=== PATIENT | male | born 1965 | race Caucasian/White ===

== ENCOUNTER → 2018-05-27 | Outpatient (CLI) | payer BC ==
[~2018-05-27] MED LIST: NO HOME MEDICATIONS
== END ==
LOC: COL.RAD 08:23
DX: R10.11 Right upper quadrant pain (principal)
CPT/HCPCS: A9537

== ENCOUNTER 2019-04-23 13:24 | Inpatient (IN) | payer BC ==
[~2019-04-23] VITALS: Ht 180.3 cm; Wt 90.0 kg
[2019-04-23] MEDS ORDERED: FLOMAX 0.40.4 MG/CAP PO (14:27)
[2019-04-23 14:34] LABS: HEMATOCRIT 38.1 % (42.0-52.0); MEAN CELL VOLUME 77 fl (80.0-100.0); MEAN CORPUSCULAR HEMOGLOBIN 24 pg (27.0-31.0); MEAN CORPUSCULAR HGB CONC 32 g/dl (33.0-37.0); MEAN PLATELET VOLUME 11.7 fl (7.4-10.4); PLATELET COUNT 94 K/mm3 (130-400); RED BLOOD COUNT 4.98 M/mm3 (4.20-5.60); REDCELL DISTRIBUTION WIDTH-CV 13.4 % (11.5-14.5)
[2019-04-23 14:47] LABS: ALBUMIN 3.3 gm/dL (3.5-5.0); BILIRUBIN,TOTAL 2.3 mg/dL (0.0-1.0); CALCIUM 7.7 mg/dL (8.4-10.2); CREATININE, serum 1.38 (0.66-1.25); POTASSIUM 3.1 mmol/L (3.4-5.0); TOTAL PROTEIN 6.4 gm/dL (6.4-8.2)
[2019-04-23 15:08] LABS: TROPONIN-I 1.41 ng/mL (0.000-0.035)
[2019-04-23 15:16] LABS: COLLECTION METHOD CLEAN CATCH
[2019-04-23 15:16] LABS: BAND 15 % (0-10); LYMPHOCYTE 5 % (20.0-51.0); NEUTROPHILS 79 % (42.0-75.2)
[2019-04-23 15:17] LABS: PLATELET ESTIMATE DECREASED (NORMAL)
[2019-04-23 15:30] LABS: C-REACTIVE PROTEIN 37.8 mg/dL (0.0-0.9)
[2019-04-23 15:30] LABS: GRANULAR CAST >12 /lpf; HYALINE CAST >12 /lpf; MUCOUS Present /lpf; PH 5 (5-8); SQUAMOUS EPITHELIAL 0-2 /hpf; URINE APPEARANCE Cloudy; URINE BACTERIA None Seen /hpf; URINE BILIRUBIN Positive (NEGATIVE); URINE BLOOD 1+ (NEGATIVE); URINE COLOR Amber; URINE GLUCOSE 1+ (NEGATIVE); URINE KETONE Trace (NEGATIVE); URINE LEUKOCYTE ESTERASE Negative (NEGATIVE); URINE NITRATE Negative (NEGATIVE); URINE PROTEIN(semi-quant) 2+ (NEGATIVE); URINE UROBILINOGEN >=4.0 mg/dL (NEGATIVE)
[2019-04-23 22:11] VITALS: BP 76/51; PULSE 105; TEMP 98.8
[2019-04-23 23:09] VITALS: BP 78/54; PULSE 102; TEMP 99.1
[2019-04-23 23:40] VITALS: BP 75/51; PULSE 104
[2019-04-23 23:50] VITALS: BP 70/38; PULSE 103
[2019-04-24] VITALS (674 sets, daily range): BP systolic 68–151; BP diastolic 43–92; PULSE 60–108; TEMP 97.6–98.2; O2SAT 65–100
[2019-04-24 00:22] LABS: TROPONIN-I 6 HR POST INITIAL 2.08 ng/mL (0.000-0.034)
--- NOTE | 2019-04-24 00:38 | NUR ---
Pt BP still not coming up. Last BP 86/56 HR 103. Second liter of NS hung at 999. First liter of NS on the floor infused prior with no problems. RT in room to do EKG.
--- NOTE | 2019-04-24 00:58 | NUR ---
REPORT RECIVED FROM VALERIA STEELE.
--- NOTE | 2019-04-24 01:10 | NUR ---
Tawny in to assess pt. BP still low. Orders to transfer pt to ICU 6. Report called to ICU. Pt transfered per bed.
[2019-04-24 01:55] LABS: HEMOGLOBIN 10.7 g/dl (13.5-18.0); MEAN CELL VOLUME 77 fl (80.0-100.0); MEAN CORPUSCULAR HEMOGLOBIN 25 pg (27.0-31.0); MEAN CORPUSCULAR HGB CONC 32 g/dl (33.0-37.0); MEAN PLATELET VOLUME 11.8 fl (7.4-10.4); PLATELET COUNT 69 K/mm3 (130-400); RED BLOOD COUNT 4.36 M/mm3 (4.20-5.60); REDCELL DISTRIBUTION WIDTH-CV 13.7 % (11.5-14.5)
[2019-04-24 01:59] LABS: HEMATOCRIT 33.6 % (42.0-52.0)
[2019-04-24 02:07] LABS: ALBUMIN 2.8 gm/dL (3.5-5.0); CREATININE, serum 1.76 (0.66-1.25); MAGNESIUM 1.6 mg/dL (1.6-2.3); POTASSIUM 3.3 mmol/L (3.4-5.0); TOTAL PROTEIN 5.6 gm/dL (6.4-8.2)
[2019-04-24 02:18] LABS: TROPONIN-I 1.63 ng/mL (0.000-0.035)
[2019-04-24 02:24] LABS: BAND 51 % (0-10); HYPOCHROMIA 1+; LYMPHOCYTE 2 % (20.0-51.0); METAMYELOCYTE 2 % (0-0); MICROCYTOSIS 1+; NEUTROPHILS 44 % (42.0-75.2); PLATELET ESTIMATE DECREASED (NORMAL)
[2019-04-24 04:01] LABS: PROTHROMBIN TIME 11.7 SECONDS (9.7-12.8)
[2019-04-24 04:08] LABS: MONOSCREEN NEGATIVE
--- NOTE | 2019-04-24 05:37 | NUR ---
1250 - RECEIVED REPORT FROM VALERIA STEELE. 0110 - PT ARRIVED IN UNIT VIA BED, ESCORTED BY 2 RNs. PT ABLE TO SCOOT HIMSELF INDEPENDENTLY TO ICU BED. PT'S BP AT HIGH 80'S TO LOW 90'S AND SUBSEQUENTLY STARTED ON LEVOPHED PER ORDER. SEE E-MAR. 0140 - BAKER INSERTED PER ORDER. 0200 - LEVOPHED STARTED PER ORDER. 0210 - THIS RN CALLED PARTY PLAN SALES HOST/HOSTESS REGARDING PT HAVING ONLY PERIPHERAL IV ACESS FOR LEVOPHED. PARTY PLAN SALES HOST/HOSTESS AWARE AND ORDER TO MONITOR PT FOR NOW. 0255 - TIMEOUT DONE FOR CENTRAL LINE PLACEMENT WITH DR. OVALLE. 0308 - CENTRAL LINE INSERTED AT RIGHT JUGULAR VEIN. X-RAY CALLED IN FOR CHECK PLACEMENT. 0315 - VERBAL OKAY TO USE CENTRAL LINE PER DR. OVALLE. 0410 - HARESH PUMP STATION OPERATOR IN ROOM WITH PATIENT AND AT BEDSIDE FOR UPDATES.
[2019-04-24 05:40] LABS: HEMOGLOBIN 10.6 g/dl (13.5-18.0); MEAN CELL VOLUME 78 fl (80.0-100.0); MEAN CORPUSCULAR HEMOGLOBIN 25 pg (27.0-31.0); MEAN CORPUSCULAR HGB CONC 32 g/dl (33.0-37.0); MEAN PLATELET VOLUME 12.6 fl (7.4-10.4); PLATELET COUNT 76 K/mm3 (130-400); RED BLOOD COUNT 4.31 M/mm3 (4.20-5.60); REDCELL DISTRIBUTION WIDTH-CV 13.7 % (11.5-14.5)
[2019-04-24 05:41] LABS: HEMATOCRIT 33.6 % (42.0-52.0)
[2019-04-24 05:55] LABS: ALBUMIN 3.2 gm/dL (3.5-5.0); BILIRUBIN,TOTAL 4.3 mg/dL (0.0-1.0); CALCIUM 7.1 mg/dL (8.4-10.2); CREATININE, serum 1.54 (0.66-1.25); POTASSIUM 3.6 mmol/L (3.4-5.0)
[2019-04-24 06:14] LABS: BAND 42 % (0-10); LYMPHOCYTE 1 % (20.0-51.0); METAMYELOCYTE 1 % (0-0); NEUTROPHILS 49 % (42.0-75.2); PLATELET ESTIMATE DECREASED (NORMAL)
[2019-04-24 06:15] LABS: HYPOCHROMIA 1+; MICROCYTOSIS 1+
--- NOTE | 2019-04-24 08:00 | NUR ---
PATIENT ASSESSED, VITALS TAKEN, LINES RETRACED, LINEN CHANGED, QUESTIONS AND CONCERNS ADDRESSED. PATIENT PLACED ON TOILET, DENIES DIZZINESS, PALPITATIONS, OR UNSTEADINESS. CALL LIGHT WITHIN REACH. WILL CONTINUE TO MONITOR.
[2019-04-24 08:38] LABS: BILIRUBIN,DIRECT 3.3 mg/dL (0.0-0.4)
--- NOTE | 2019-04-24 12:57 | NUR ---
PATIENT REASSESSED, LINES RETRACED, QUESTIONS AND CONCERNS ADDRESSED. WILL CONTINUE TO MONITOR.
[2019-04-24 17:41] LABS: CALCIUM 7.7 mg/dL (8.4-10.2); CREATININE, serum 1.17 (0.66-1.25); POTASSIUM 3.6 mmol/L (3.4-5.0)
--- NOTE | 2019-04-24 17:49 | NUR ---
PATIENT COMPLAINING OF SLIGHT SHORTNESS OF BREATH; LUNG SOUNDS ON RIGHT SIDE NOTED TO HAVE LIGHT EXP. WHEEZING, ALL LOBES DIMINISHED, SPO2 AT 96% RA. PATIENT HAS A SLIGHT COUGH AND WHEN ASKED ABOUT WHETHER HE WAS HAVING SPUTUM COME UP, HE STATED THAT IT WAS "NOT MUCH" AND GREEN IN COLOR. PATIENT STATES THAT HE HAS NOT BEEN ABLE TO VOID MUCH TODAY AND DOES NOT HAVE A STRONG APPETITE. FOOD AND FLUIDS OFFERED BY BOTH NURSE AND FAMILY, PATIENT CONTINUALLY STATES THAT HE WILL "GET AROUND TO IT." UPON SITTING UP AT SIDE OF BED, PATIENT STATED THAT HE "SEES TREES WHENEVER I CLOSE MY EYES." WHEN ASKED ABOUT DIZZINESS, HEADACHE, SENSITIVITY TO LIGHT AND SOUND, PATIENT DENIES ALL OF THESE THINGS.
--- NOTE | 2019-04-24 19:33 | NUR ---
REPORT GIVEN TO VALERIA GUAMAN.
[2019-04-25] VITALS (273 sets, daily range): BP systolic 104–154; BP diastolic 65–79; PULSE 54–72; TEMP 97.2–98.4; O2SAT 58–100
[2019-04-25 04:37] LABS: GRAN # 5.1 (1.4-6.5); GRAN % 83.1 % (42.2-75.2); HEMATOCRIT 32.7 % (42.0-52.0); HEMOGLOBIN 10.4 g/dl (13.5-18.0); LYMPH # 0.6 (1.2-3.4); MEAN CELL VOLUME 76 fl (80.0-100.0); MEAN CORPUSCULAR HEMOGLOBIN 24 pg (27.0-31.0); MEAN CORPUSCULAR HGB CONC 32 g/dl (33.0-37.0); MEAN PLATELET VOLUME 12.5 fl (7.4-10.4); MONO # 0.4 (0.1-0.6); MONO % 7.2 % (1.7-9.3); PLATELET COUNT 99 K/mm3 (130-400); RED BLOOD COUNT 4.29 M/mm3 (4.20-5.60); REDCELL DISTRIBUTION WIDTH-CV 14.3 % (11.5-14.5)
[2019-04-25 04:50] LABS: CALCIUM 7.9 mg/dL (8.4-10.2); CREATININE, serum 1.16 (0.66-1.25); MAGNESIUM 2.6 mg/dL (1.6-2.3); PHOSPHOROUS 1.9 mg/dL (2.5-4.5); POTASSIUM 3.5 mmol/L (3.4-5.0)
--- NOTE | 2019-04-25 08:00 | NUR ---
UPON ENTERING ROOM, PATIENT WAS SITTING AT THE SIDE OF THE BED AND NOTED TO BE AGITATED. SHOUTING, STATING THAT HE WANTS TO LEAVE THE UNIT TO SHOWER, CANNOT SLEEP, IS "SICK OF USING THESE TOILETS WITH EVERYONE WALKING BY", AND IS READY TO GO. PATIENT REQUESTED TO GO UPSTAIRS SO HE COULD SHOWER. INFORMED PATIENT THAT SINCE HE IS ICU STATUS, HE CANNOT LEAVE THE UNIT TO SHOWER ON A DIFFERENT FLOOR. I ATTEMPTED TO ADDRESS THE CONCERNS OF WANTING TO SHOWER BY OFFERING WARM BATH WIPES AND A SHAMPOO CAP--PATIENT ADAMENTLY REFUSED, OFFERED TO CLOSE THE BLINDS AND ROOM DOOR WHEN USING THE TOILET--PATIENT STATED THAT HE WANTED A REAL TOILET. I EXPLAINED TO PATIENT THAT IT IS UP TO THE HOSPITALIST WHETHER HE CAN BE SENT TO THE MEDICAL FLOOR IS IN [place] TO SHOWER THERE UPON TRANSFER. PROVIDER NOTIFIED OF SITUATION PRIOR TO ROUNDING AT BEDSIDE.
--- NOTE | 2019-04-25 10:34 | NUR ---
SW met with the patient to discuss a discharge plan. The pt lives in [place] with his , Marissa. The pt does not use DME and reports independence with ADLs. The pt's PCP is Dr. Hagen and pt receives medications from [facility] with no difficulties. The pt does not have advanced directives in the EMR and was not interested in obtaining a DPOA-HC form. The pt plans to return home upon discharge. There are no additional needs at this time.
--- NOTE | 2019-04-25 12:20 | NUR ---
PATIENT TAKEN FROM ICU UNIT TO MEDICAL UNIT VIA WHEELCHAIR, ESCORTED BY MYSELF, ACCOMPANIED BY VARIOUS PATIENT FAMILY MEMBERS. REPORT GIVEN TO VALERIA URIBE AT 1115.
--- NOTE | 2019-04-25 23:15 | NUR ---
Tawny nottified of pt's HR dropping down to 43 and gradually going up to low to mid 50's. Pt checked frequently with no s/s. States he is trying to get some sleep. Tawny ok with lowering tele perimeter to 45. ICU tele notified.
[2019-04-26] VITALS (398 sets, daily range): BP systolic 135–170; BP diastolic 72–106; PULSE 50–75; TEMP 97.2–98.7; O2SAT 87–99
--- NOTE | 2019-04-26 02:11 | NUR ---
Pt's HR still drops into the 40's. Denies any s/s. Antibiotics given thru Right IJ. Flushes without any difficulty. Will continue to monitor.
--- NOTE | 2019-04-26 05:35 | NUR ---
Pt c/o his mouth being so dry since he can not have anything to eat or drink. Swabs given so he can clean his mouth. Refuses chap stick. States he might not be able to wait till 12:30 for his heart cath. Offered cool cloths to put on forehead and pt refuses. HR at this time in the 50's and then drops for a brief moment to the low 40's. No s/s of low HR. Call light within reach.
[2019-04-26 06:11] LABS: HEMOGLOBIN 10.8 g/dl (13.5-18.0); MEAN CELL VOLUME 75 fl (80.0-100.0); MEAN CORPUSCULAR HEMOGLOBIN 24 pg (27.0-31.0); MEAN CORPUSCULAR HGB CONC 33 g/dl (33.0-37.0); MEAN PLATELET VOLUME 13.4 fl (7.4-10.4); PLATELET COUNT 135 K/mm3 (130-400); RED BLOOD COUNT 4.43 M/mm3 (4.20-5.60); REDCELL DISTRIBUTION WIDTH-CV 14.2 % (11.5-14.5)
[2019-04-26 06:12] LABS: HEMATOCRIT 33.2 % (42.0-52.0)
[2019-04-26 06:20] LABS: BILIRUBIN UNCONJUGATED 1.2 mg/dL (0.0-1.1); BILIRUBIN,TOTAL 2.2 mg/dL (0.0-1.0); CALCIUM 8.1 mg/dL (8.4-10.2); CREATININE, serum 1.12 (0.66-1.25); TOTAL PROTEIN 6.2 gm/dL (6.4-8.2)
[2019-04-26 06:27] LABS: POTASSIUM 2.9 mmol/L (3.4-5.0)
--- NOTE | 2019-04-26 06:45 | NUR ---
Lab called with critical Potassium level of 2.9. Dr Salcido notified of Potassium level. Orders received oral and IV potassium along with some pudding to take.
--- NOTE | 2019-04-26 08:09 | NUR ---
Called Pharmacy to verify the length of time to run 40meq IV potassium in a central line. Report given to VALERIA Harding.
[2019-04-26 09:41] LABS: BAND 4 % (0-10); LYMPHOCYTE 20 % (20.0-51.0); NEUTROPHILS 73 % (42.0-75.2); PLATELET ESTIMATE NORMAL (NORMAL)
--- NOTE | 2019-04-26 09:46 | NUR ---
Reviewing pt chart prior to heart cath. No current coag labs available. Pt plt count [address] Salcido notified by this RN. Order for stat PT/INR. Pt also to receive Aspirin 81mg PO prior to procedure. Orders read back and verified.
--- NOTE | 2019-04-26 10:00 | NUR ---
K+ lab 2.9 on morning labs. IV and PO replacement orders active. IV K+ replacement being started at 0930 by primary RN while this RN in room examining pt. Pt next on cardiac cath lab technologist schedule, Dr Salcido notified of this.
[2019-04-26 10:37] LABS: INR 1.1 (0.8-3.0)
--- NOTE | 2019-04-26 10:45 | NUR ---
PT off floor for scheduled heart cath; Second dose of IV Potassium pulled and hung for dosing prior to exit from floor. CDA
--- NOTE | 2019-04-26 11:20 | NUR ---
SEE MERGE DOCUMENTATION FOR MEDICATION ADMINISTRATION TIMES AND INTRA/POST PROCEDURE SEDATION ASSESSMENTS. SEE NOTES REGARDING K+; MD AWARE OF MORNING LEVEL, IV REPLACEMENT CURRENTLY INFUSING, OK WITH PROCEEDING WITH CASE. PT PREVIOUSLY RECEIVING PO K+ REPLACEMENT TODAY WELL. RATE OF K+ REPLACEMENT INCREASED TO 20 MEQ/HR THROUGH RIGHT IJ CENTRAL LINE PER VORB FROM DR TODD.
--- NOTE | 2019-04-26 11:46 | NUR ---
Completed assessment and medication administration; PT tolerated all cares well; PT reported acute anxiety during morning shift change with pending cardiac cath procedure; No further acute concerns assessed or reported at time of assessment; PT able to AMB well with voiding; RIJ triple lumen in place; No further acute assessed or reported needs or concerns; PT critical labs reported to night; Pending new orders at time of shift change; New order for oral and IV Potassium replacement placed; Oral Potassium given with orange juice; IV Potassium not given at same time as PT imaging in room prior to cardiac cath and unavoidable acute care changes in other patient delaying availablity in PT room. CDA
--- NOTE | 2019-04-26 14:05 | NUR ---
Patient arrives to ICU 4 via bed from starch factory laborer with RN x2. A/Ox4 but sleepy. Arouses to name and answers appropriately. TR band on to right radial cath site, site CDI. Continues with chest pain from CL, 11/08 and improving. Resp sl labored at rest, was given Lasix in CL. Lungs diminished but clear with upper airway wheezing. Call light at side. Has many complaints, emotional support given
--- NOTE | 2019-04-26 18:50 | NUR ---
1814 Patient up to sit in recliner for supper. Transfers with 1:1 assist, tolerates fair. C/o dizziness but resolves after transfer. 1834 Request help with urinal, "pissed all down my leg". Offered to take shorts off, "It's fine." Stands to return to bed and asks son for new pair of shorts, son leaves to get pain. This RN told patient's other son to stay with patient and ensure he stays in chair until RN comes back. States understanding. 1849 Returned to patient room and patient has transfered himself to bed. Talked with patient and family about that we need to follow the rules and allow nursing staff to help or we could have problems, jamel following procedure. states understanding, patient states "whatever you say, ok" Request to get up to toilet, up and transfers for BM. RN helps return to bed, refuses blood pressure at this time "Just leave me be". Asks repeatedly to go to medical floor, talked with him that he will go upstairs tomorrow if all goes well tonight.
--- NOTE | 2019-04-26 20:00 | NUR ---
Patient is awake and lying in bed. at the bedside. Patient is alert and oriented. No complaints of pain, just states he has some soreness, but would not rate the pain. No complaints of SOB. Assessment complete. Patient's lung sounds are clear in all [place]. HR and rhythm regular with normal S1 and S2 heard. Bowel sounds active. Patient's cath site is clean and dry, TR band in place. No evidence of bleeding or hematoma. Patient has no further needs at this time. Will continue to monitor, call light within reach.
--- NOTE | 2019-04-26 20:10 | NUR ---
Bedside report received from VALERIA Beckett
--- NOTE | 2019-04-26 23:37 | NUR ---
Patient was assisted up to the recliner per his request. At this time patient was found to be out of the recliner and trying to get himself back in bed. Patient was tangled in all the cords and IV lines. Assisted patient with lines and getting in bed. Reinforced with patient that he needs to call prior to getting up, he mumbles but does not confirm understanding. Will continue to monitor.
[2019-04-27] VITALS (832 sets, daily range): BP systolic 136–163; BP diastolic 76–95; PULSE 41–79; TEMP 97.3–98.4; O2SAT 85–100
--- NOTE | 2019-04-27 | NUR ---
Patient asleep upon extrance into the room. Awakens to noise in the room. Patient has been restless all night. He is alert and oriented. Assessment complete, no changes from previous exam. Patient is bradycardic now, but still sinus rhythm with occasional PVCs. Patient has no further needs at this time. Will continue to monitor. Call light within reach.
--- NOTE | 2019-04-27 04:00 | NUR ---
Patient sleeps between disturbances. Awakens to noise in the room. no complaints of pain or SOB. No signs of distress. Patient is still restless at times. Vitals have remained stable, though HR did reach a low of 41. Patient has no further needs at this time. Will continue to monitor. Call light within reach.
--- NOTE | 2019-04-27 05:30 | NUR ---
Integrilin drip stopped at this time.
[2019-04-27 07:19] LABS: ALBUMIN 3.1 gm/dL (3.5-5.0); BILIRUBIN,TOTAL 2.7 mg/dL (0.0-1.0); CALCIUM 7.9 mg/dL (8.4-10.2); CREATININE, serum 0.86 (0.66-1.25); HEMOGLOBIN 11.9 g/dl (13.5-18.0); MEAN CELL VOLUME 75 fl (80.0-100.0); MEAN CORPUSCULAR HEMOGLOBIN 24 pg (27.0-31.0); MEAN CORPUSCULAR HGB CONC 32 g/dl (33.0-37.0); MEAN PLATELET VOLUME 13.3 fl (7.4-10.4); PLATELET COUNT 159 K/mm3 (130-400); RED BLOOD COUNT 4.93 M/mm3 (4.20-5.60); REDCELL DISTRIBUTION WIDTH-CV 13.9 % (11.5-14.5); TOTAL PROTEIN 6.1 gm/dL (6.4-8.2)
[2019-04-27 07:22] LABS: POTASSIUM 2.9 mmol/L (3.4-5.0)
--- NOTE | 2019-04-27 07:32 | NUR ---
Bedside report given to VALERIA Pink and VALERIA Chaney.
[2019-04-27 07:36] LABS: HEMATOCRIT 36.9 % (42.0-52.0)
--- NOTE | 2019-04-27 07:45 | NUR ---
PATIENT ASSESSED, QUESTIONS AND CONCERNS FROM BOTH PATIENT AND FAMILY ADDRESSED. PATIENT DENIES ANY PAIN. WILL CONTINUE TO MONITOR.
[2019-04-27 08:12] LABS: EOSINOPHIL 2 % (0-4); LYMPHOCYTE 10 % (20.0-51.0); NEUTROPHILS 79 % (42.0-75.2); PLATELET ESTIMATE NORMAL (NORMAL)
[2019-04-27 08:13] LABS: HYPOCHROMIA 1+; MICROCYTOSIS 1+
--- NOTE | 2019-04-27 10:05 | NUR ---
SW attended clinical rounds. The patient is to be transferred up to the floor today, 04/27. SW then followed up with the patient to review discharge plan. The patient states that he still plans to return home with his . He states that he does not have any questions or concerns for discharge. No additional needs at this time.
--- NOTE | 2019-04-27 13:44 | NUR ---
Initial visit; Patient's family thanked Director Of Channel Marketing for looking in on Donell and letting them know [facility] is available and wishes him well.
--- NOTE | 2019-04-27 14:36 | NUR ---
REPORT GIVEN TO VALERIA LEON. PATIENT TAKEN TO FLOOR AT 1430 VIA WHEELCHAIR ESCORTED BY MYSELF AND ACCOMPANIED BY PATIENT'S .
--- NOTE | 2019-04-27 15:22 | NUR ---
Pt arrives to medical floor rm [id number] from ICU, awake and alert, ambulates in room with steady gait, denies pain at this time. Pt requests to get into the shower, Triple lumen catheter to right IJ covered and shower supplies provided. No further needs reported.
--- NOTE | 2019-04-27 22:00 | NUR ---
Report received from VALERIA Allred. Patient resting in bed. Vital signs all within normal limits. Alert and oriented. Denies having any pain. Blood draw from right IJ TLC completed. TLC flushed. Patient will be NPO after midnight for heart cath in morning. Denies further needs. Call light within reach.
[2019-04-28] VITALS (15 sets, daily range): BP systolic 109–152; BP diastolic 67–94; PULSE 61–91; TEMP 97.7–98.7
[2019-04-28 00:04] LABS: ANAPLASMA PHAGOCYTOPHILA IGG <1:64 titer (<1:64); E.CHAFFEENSIS IGG AB <1:64 titer (<1:64)
--- NOTE | 2019-04-28 00:21 | NUR ---
Caps changed on TLC. All had blood return and were flushed.
--- NOTE | 2019-04-28 05:47 | NUR ---
Patient had uneventful night. Patient states having some anxiety about heart cath procedure this morning. Would like to be given something prior to procedure to help relieve anxiety. Will pass this information on to day shift nurse. Patient is resting in bed, with no further needs at this time. Call light within reach.
[2019-04-28 06:36] LABS: HEMATOCRIT 38.6 % (42.0-52.0); HEMOGLOBIN 12.5 g/dl (13.5-18.0); MEAN CELL VOLUME 75 fl (80.0-100.0); MEAN CORPUSCULAR HEMOGLOBIN 24 pg (27.0-31.0); MEAN CORPUSCULAR HGB CONC 32 g/dl (33.0-37.0); MEAN PLATELET VOLUME 12.3 fl (7.4-10.4); PLATELET COUNT 209 K/mm3 (130-400); RED BLOOD COUNT 5.15 M/mm3 (4.20-5.60)
[2019-04-28 06:42] LABS: INR 1.2 (0.8-3.0)
[2019-04-28 06:45] LABS: PARTIAL THROMBOPLASTIN TIME 25.9 SECONDS (26.0-37.0)
--- NOTE | 2019-04-28 06:52 | NUR ---
Report given to VALERIA Steven
[2019-04-28 07:00] LABS: CREATININE, serum 0.9 (0.66-1.25); POTASSIUM 3.6 mmol/L (3.4-5.0)
--- NOTE | 2019-04-28 07:00 | NUR ---
Report received from VALERIA Mendoza. Pt in bed resting, wants to know more about plan for today, will call fence laborer shortly and continue to monitor.
[2019-04-28 07:42] LABS: BAND 2 % (0-10); LYMPHOCYTE 19 % (20.0-51.0); MICROCYTOSIS 1+; MYELOCYTE 5 % (0-0); NEUTROPHILS 71 % (42.0-75.2); NUCLEATED RED BLOOD CELL 1 (0-6); PLATELET ESTIMATE NORMAL (NORMAL)
[2019-04-28 07:43] LABS: HYPOCHROMIA 1+
--- NOTE | 2019-04-28 08:49 | NUR ---
Assessment charted. Dr. Vincent in room, okay to give all am meds per him. Pt and family at bedside aware of POC for heart cath today. Pt denies pain. RIJ triple lumen with preop meds infusing. Denies needs. Resting quietly. R radial previous site well approximated. Will continue to montior.
--- NOTE | 2019-04-28 10:59 | NUR ---
ALL MEDICATIONS GIVEN VORB WITH MD. SEE MERGE FOR ALL MEDICATION ADMIN TIMES. SEE MERGE FOR ALL RASS ASSESSMENTS DURING AND POST PROCEDURE. RADIAL PULSE +2, POSITIVE BARBEAU'S TEST IN THE RIGHT WRIST.
--- NOTE | 2019-04-28 12:00 | NUR ---
Patient transported to medical room 354 at this time with telemetry box in place. VALERIA Steven at bedside. Patient hooked back up to VS machine, VS stable at this time. Patient denies any pain. Visualized right wrist with RN. TR band remains in place with 12 mls of air in the band. No oozing or hematoma noted at this time. Radial pulse +2. Discussed importance of wrist restrictions with patient and family. Verbalized understanding. Bed in locked and lowest position, call light within reach.
--- NOTE | 2019-04-28 18:16 | NUR ---
Pt has done well today. Went down for a heart cath at 1030 and returned at 1200. VSS, released TR band after 2 hours at 3 ml intervals, pt tolerated well, no signs of bleeding, bandaid applied, Radial pulse remains +2. Pt taking PO well. Family at bedside. Emilio needs. Will give bedside shift report to nightshift nurse who will resume care.
--- NOTE | 2019-04-28 20:35 | NUR ---
Report received from VALERIA Steven. Patient resting in chair. Vital signs within normal limits. Denies having any pain. No further needs at this time. Call light within reach.
--- NOTE | 2019-04-29 00:30 | NUR ---
Resting in bed asleep.
[2019-04-29 03:38] VITALS: BP 125/73; PULSE 76; TEMP 97.7
--- NOTE | 2019-04-29 06:05 | NUR ---
Patient had an uneventful night. No bleeding at right radial site. Dressing to TLC dry and in tact. Denied pain throughout shift. Resting in bed.
--- NOTE | 2019-04-29 06:46 | NUR ---
Report given to VALERIA Jenkins.
--- NOTE | 2019-04-29 06:55 | NUR ---
Report given to VALERIA Knox.
[2019-04-29 08:06] LABS: HEMOGLOBIN 11.9 g/dl (13.5-18.0); MEAN CELL VOLUME 77 fl (80.0-100.0); MEAN CORPUSCULAR HEMOGLOBIN 24 pg (27.0-31.0); MEAN CORPUSCULAR HGB CONC 31 g/dl (33.0-37.0); MEAN PLATELET VOLUME 11.9 fl (7.4-10.4); PLATELET COUNT 261 K/mm3 (130-400); RED BLOOD COUNT 4.96 M/mm3 (4.20-5.60); REDCELL DISTRIBUTION WIDTH-CV 14.3 % (11.5-14.5)
[2019-04-29 08:13] VITALS: BP 130/83; PULSE 87; TEMP 98.4
[2019-04-29 08:29] LABS: CALCIUM 8.2 mg/dL (8.4-10.2); CREATININE, serum 0.85 (0.66-1.25); POTASSIUM 4.1 mmol/L (3.4-5.0)
[2019-04-29 08:43] LABS: BAND 1 % (0-10); EOSINOPHIL 5 % (0-4); HYPOCHROMIA 2+; LYMPHOCYTE 10 % (20.0-51.0); MYELOCYTE 13 % (0-0); NEUTROPHILS 64 % (42.0-75.2); PLATELET ESTIMATE NORMAL (NORMAL)
[2019-04-29 08:44] LABS: MICROCYTOSIS 1+
[2019-04-29] MEDS ORDERED: BRILINTA90 MG PO (09:25)
[2019-04-29] MEDS ORDERED: MONODOX100 PO (09:25)
[2019-04-29] MEDS ORDERED: CEFTIN500 MG PO (09:25)
[2019-04-29] MEDS ORDERED: COREG 3.123.125 MG/T PO (09:26)
[2019-04-29] MEDS ORDERED: LIPITOR 40MG TA40 MG PO (09:26)
[2019-04-29] MEDS ORDERED: ASPIRIN E.C. 8181 MG PO (09:26)
--- NOTE | 2019-04-29 10:41 | NUR ---
Assessment completed, alert/oriented, vital signs stable, denies pain or dsicomfort, heart RRR/ distal pulses are palpable, right radial access site looks good / no signs of bleeding or hematoma, denies any resp.difficulty / lungs CTA, in to see him already and giving orders for discharge, present in the room
--- NOTE | 2019-04-29 10:44 | NUR ---
discharge orders discussed with the patient and his , instructed to follow up with PCP and Cardiology as we have scheduled, discussed new medications and scripts sent to pharmacy for him, KRISTIAN IV cath removed, bathing and activity restrictions given for his IV and Arterial access puncture sites/ dressings intact, he is leaving with his , I personalyl escorted them out to the vehicle
--- NOTE | 2019-04-29 10:49 | NUR ---
Patient is dc home today with .
== END 2019-04-29 12:16 | disposition home or self-care (01) | DRG 853 ==
LOC: COL.ER 13:24 → ICU 18:38 → MEDICAL 18:38 → ICU 04-24 01:08 → MEDICAL 04-25 13:23 → ICU 04-26 13:52 → MEDICAL 04-27 14:41 → ICU 04-27 14:41 → MEDICAL 04-27 19:00
PROVIDERS: Emergency Medicine; Hospitalist; Internal Medicine; Internal Medicine Cardiovascular Disease; Nurse Practitioner; Physician Assistant; ADMIT Student in an Organized Health Care Education/Training Program
PROC: 02HV33Z Insertion of Infusion Device into Superior Vena Cava, Percutaneous Approach (ICD-10-PCS; principal; 2019-04-24)
PROC: 027034Z Dilation of Coronary Artery, One Artery with Drug-eluting Intraluminal Device, Percutaneous Approach (ICD-10-PCS; 2019-04-26)
PROC: 4A023N7 Measurement of Cardiac Sampling and Pressure, Left Heart, Percutaneous Approach (ICD-10-PCS; 2019-04-26)
PROC: 02713EZ Dilation of Coronary Artery, Two Arteries with Two Intraluminal Devices, Percutaneous Approach (ICD-10-PCS; 2019-04-26)
PROC: 02703ZZ Dilation of Coronary Artery, One Artery, Percutaneous Approach (ICD-10-PCS; 2019-04-26)
PROC: B2111ZZ Fluoroscopy of Multiple Coronary Arteries using Low Osmolar Contrast (ICD-10-PCS; 2019-04-26)
DX: A41.9 Sepsis, unspecified organism (principal); I21.4 Non-ST elevation (NSTEMI) myocardial infarction; R65.21 Severe sepsis with septic shock; N12 Tubulo-interstitial nephritis, not specified as acute or chronic; N17.9 Acute kidney failure, unspecified; I25.110 Atherosclerotic heart disease of native coronary artery with unstable angina pectoris; K21.9 Gastro-esophageal reflux disease without esophagitis; N40.0 Benign prostatic hyperplasia without lower urinary tract symptoms; R78.89 Finding of other specified substances, not normally found in blood; E87.6 Hypokalemia; E83.42 Hypomagnesemia; E86.0 Dehydration; D69.6 Thrombocytopenia, unspecified; D70.9 Neutropenia, unspecified; D50.9 Iron deficiency anemia, unspecified; I08.3 Combined rheumatic disorders of mitral, aortic and tricuspid valves; F41.9 Anxiety disorder, unspecified; E88.89 Other specified metabolic disorders; E83.31 Familial hypophosphatemia
CPT/HCPCS: 99222; 99223-AI; 99232-AI; 99233-AI; 99239; A4216; C1725; C1769; C1874; C1887; C9600; C9601; J0696; J1327; J1644; J1720; J1940; J2060; J2250; J2543; J3010; J3370; J3475; J3480; J7030; J7050; J7060; P9047; Q9967

== ENCOUNTER 2019-05-26 15:00 | Outpatient (RCR) | payer BC ==
[~2019-05-26 15:00] MED LIST changes: +ASPIRIN E.C. 8181 MG PO; +BRILINTA90 MG PO; +CEFTIN500 MG PO; +COREG 3.123.125 MG/T PO; +FLOMAX 0.40.4 MG/CAP PO; +LIPITOR 40MG TA40 MG PO; +MONODOX100 PO
== END 2019-08-04 05:57 | disposition home or self-care (01) ==
LOC: COL.CR 15:00
DX: Z48.812 Encounter for surgical aftercare following surgery on the circulatory system (principal); I21.4 Non-ST elevation (NSTEMI) myocardial infarction; Z95.5 Presence of coronary angioplasty implant and graft

== ENCOUNTER 2021-05-23 15:00 | Outpatient (RCR) | payer OTHER | END 2021-05-24 | LOC: WSPT | DX: M19.012 Primary osteoarthritis, left shoulder (principal); M75.02 Adhesive capsulitis of left shoulder; Z98.890 Other specified postprocedural states | CPT/HCPCS: G0283-GP ==

== ENCOUNTER 2021-06-14 15:00 | Outpatient (RCR) | payer OTHER | END 2021-06-14 16:00 | disposition home or self-care (01) | LOC: WSPT 15:00 | DX: M19.012 Primary osteoarthritis, left shoulder (principal); M75.02 Adhesive capsulitis of left shoulder ==

== ENCOUNTER 2021-07-19 04:12 | Emergency (ER) | payer BC, OTHER ==
[~2021-07-19] VITALS: Ht 180.3 cm; Wt 86.4 kg
[2021-07-19 04:36] VITALS: TEMP 97.8
[2021-07-19 05:08] LABS: BASO % 0.3 % (0.0-2.0); EOS # 0.1 K/mm3 (0.0-0.7); EOS % 2.2 % (0-4.0); GRAN # 4.1 K/mm3 (1.4-6.5); GRAN % 62.3 % (42.2-75.2); HEMATOCRIT 46.9 % (42.0-52.0); HEMOGLOBIN 14.4 g/dl (13.5-18.0); LYMPH # 1.7 K/mm3 (1.2-3.4); LYMPH % 26.3 % (20.0-51.0); MEAN CELL VOLUME 80 fl (80.0-100.0); MEAN CORPUSCULAR HEMOGLOBIN 25 pg (27.0-31.0); MEAN CORPUSCULAR HGB CONC 31 g/dl (33.0-37.0); MEAN PLATELET VOLUME 11.4 fl (7.4-10.4); MONO # 0.6 K/mm3 (0.1-0.6); MONO % 8.6 % (1.7-9.3); PLATELET COUNT 204 K/mm3 (130-400); RED BLOOD COUNT 5.83 M/mm3 (4.20-5.60); REDCELL DISTRIBUTION WIDTH-CV 13.8 % (11.5-14.5)
[2021-07-19 05:21] LABS: COLLECTION METHOD CLEAN CATCH
[2021-07-19 05:25] LABS: BILIRUBIN,TOTAL 1.1 mg/dL (0.2-1.2); CALCIUM 9.3 mg/dL (8.4-10.2); CREATININE, serum 1.18 mg/dL (0.72-1.25); POTASSIUM 3.9 mmol/L (3.5-4.5); TOTAL PROTEIN 7.1 gm/dL (6.2-8.1)
[2021-07-19 05:27] LABS: MUCOUS Present /lpf; PH 5 (5-8); SQUAMOUS EPITHELIAL None Seen /hpf; URINE APPEARANCE Clear; URINE BACTERIA Rare /hpf; URINE BILIRUBIN Negative (NEGATIVE); URINE BLOOD Negative (NEGATIVE); URINE COLOR Yellow; URINE GLUCOSE Negative (NEGATIVE); URINE KETONE Negative (NEGATIVE); URINE LEUKOCYTE ESTERASE Negative (NEGATIVE); URINE NITRATE Negative (NEGATIVE); URINE PROTEIN(semi-quant) Negative (NEGATIVE); URINE RBC 0-2 /hpf; URINE UROBILINOGEN Negative (NEGATIVE)
[2021-07-19] MEDS ORDERED: NORCO 325 MG-51 TAB PO (06:51)
[2021-07-19] MEDS ORDERED: ZOFRAN ODT4 MG PO (06:51)
[2021-07-19 06:53] VITALS: BP 138/83; PULSE 60
== END 2021-07-19 07:02 | disposition home or self-care (01) ==
LOC: COL.ER 04:12
PROVIDERS: Student in an Organized Health Care Education/Training Program
DX: N13.2 Hydronephrosis with renal and ureteral calculous obstruction (principal); N40.0 Benign prostatic hyperplasia without lower urinary tract symptoms; Z79.899 Other long term (current) drug therapy
CPT/HCPCS: J1885; J2270; J2405; J7030; Q9967

== ENCOUNTER → 2022-10-29 | Outpatient (CLI) | payer OTHER ==
[~2022-10-29] MED LIST changes: +NORCO 325 MG-51 TAB PO; +ZOFRAN ODT4 MG PO
== END ==
LOC: COL.RAD 07:56
DX: M51.36 Other intervertebral disc degeneration, lumbar region (principal); M47.816 Spondylosis without myelopathy or radiculopathy, lumbar region; M48.07 Spinal stenosis, lumbosacral region; M47.817 Spondylosis without myelopathy or radiculopathy, lumbosacral region; M51.26 Other intervertebral disc displacement, lumbar region; M48.061 Spinal stenosis, lumbar region without neurogenic claudication; M43.16 Spondylolisthesis, lumbar region